=== PATIENT | female | born 1960 | race American Indian/Alaskan Native ===

== ENCOUNTER 2018-11-14 11:22 | Emergency (ER) | payer MEDICAID ==
--- NOTE | 2018-11-14 11:45 | Cat Scan Report ---
PROCEDURE: CT HEAD/BRAIN WO CON TECHNIQUE: A noncontrast CT of the head was performed. HISTORY: neuro deficits <6hrs or sx present upon awakening COMPARISON: None FINDINGS: There is a 1.6 cm calcified meningioma in the left posterior parietal parafalcine region. There is no significant edema or mass effect seen. There is no acute intracranial hemorrhage. There is no brain edema, mass effect or midline shift. Ventricular size is appropriate for brain volume. There is no abnormal extra-axial fluid collections. There is no skull fracture seen. The visualized paranasal sinuses are clear. 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 IMPRESSION: 1.6 cm calcified meningioma in left posterior parietal parafalcine region. No significan t mass effect or edema. There is no acute intracranial abnormality otherwise identified. This document is electronically signed by Ivelisse Castorena MD., November 14 2018 11:43:49 AM ET
--- NOTE | 2018-11-14 11:46 | Consultation ---
History of Present Illness History of present illness: [facility] Consult Services Impression: Patient with seizure disorder found down at home. EMS witnessed seizure on arrival. She has right-sided weakness and dysarthria, which could be Paco's phenomenon, but rule out left hemispheric lacunar infarct. No cortical/large vessel signs/symptoms. Not a tpa candidate due to: out of window Not an LYNETTE candidate due to: presentation not suggestive of LVO Differential Diagnosis: 1. Cardioembolic stroke 2. Small vessel disease/lacune 3. Thromboembolic, [id number] mechanism 4. Hypercoagulable state-related infarct 5. Transient ischemic attack 6. Thrombotic mechanism, large artery disease Comments: Door time: 1122 [facility] contacted: [id number] [facility] at bedside: 1131 NIHSS assessment time: 1135 Recommendations: Keppra 1500mg load Confirm her home antiseizure med regimen MRI brain wo Seizure precautions inpatient neurology consultation Inpatient stroke evaluation as per Neurology/ Internal Medicine Discussed with ED MD CC: stroke alert History of Present Illness Patient is a58 year old woman with a reported history of seizure disorder (specifics unknown). Last see normal by family at 0200. Family found her at home down around 1100 today. She was minimally responsive and had indication of right-sided weakness and slurred speech. EMS summoned and on arrival they witnessed a brief convulsion. Diagnostic: CT head wo - nothing acute Exam: NIHSS score: 8 Medical Decision Making: - Extensive number of diagnosis or management options are considered above. - Extensive amount of complex data reviewed. - High risk of complication and/or morbidity or mortality are associated with differential diagnostic considerations above. - There may be Uncertain outcome and increased probability of prolonged functional impairment or high probability of severe prolonged functional impairment associated with some of these differential diagnosis. Medical Data Reviewed: 1.Data reviewed include clinical labs, radiology, Medical Tests; 2.Tests results discussed w/performing or interpreting physician; 3.Obtaining/reviewing old medical records; 4.Obtaining case history from another source; 5.Independent review of image, tracing or specimen. Patient was informed the Neurology Consult would happen via TeleHealth consult by way of interactive audio and video telecommunications and consented to receiving care in this manner. Medications and Allergies Allergies Allergy/AdvReac Type Severity Reaction Status Date / Time No Known Allergies Allergy Unverified 11/14/18 11:26 - Level of Consciousness 1a. Level of Consciousness: alert/keenly responsive - LOC Questions 1b. LOC Questions: answers no questions correctly - LOC Command 1c. LOC Commands: performs tasks correctly - Best Gaze 2. Best Gaze: partial gaze palsy - Visual 3. Visual: no visual loss - Facial Palsy 4. Facial Palsy: partial paralysis - Motor Arm 5a. Motor Arm Left: no drift 5b. Motor Arm Right: drift - Motor Leg 6a. Motor Leg Left: no drift 6b. Motor Leg Right: drift - Limb Ataxia 7. Limb Ataxia: absent - Sensory 8. Sensory: normal - Best Language 9. Best Language: no aphasia - Dysarthria 10. Dysarthria: mild/moderate dysarthria - Extinction and Inattention 11. Extinction/Inattention: no abnormality - Scoring Total Score: 8 Stroke Severity: Moderate Stroke Results - Laboratory Findings Abnormal Lab Findings: Abnormal Labs 11/14/18 11:45 POC Glucose 135 H
[2018-11-14 11:48] LABS: Basophils # (Auto) 0.1 K/mm3 (0.0-0.1); Basophils % (Auto) 0.8 % (0.0-1.8); Eosinophils # (Auto) 0.2 K/mm3 (0.0-0.4); Eosinophils % (Auto) 2.4 % (0.0-4.3); Hematocrit 36.2 % (30.3-42.9); Hemoglobin 12.5 gm/dl (10.1-14.3); Lymphocytes % (Auto) 30.8 % (13.4-35.0); Mean Corpuscular HGB Conc 35 % (30-34); Mean Corpuscular Volume 95 fl (79-97); Monocytes # (Auto) 0.7 K/mm3 (0.0-0.8); Monocytes % (Auto) 11.3 % (0.0-7.3); Platelet Count 235 K/mm3 (140-440); Red Blood Count 3.79 M/mm3 (3.65-5.03); Red Cell Distribution Width 14.3 % (13.2-15.2)
[2018-11-14] MEDS ORDERED: KEPPRA 1,000 MG/NS 0.75% 100ML 1,000 MG/100 ML BAG IV ONE (11:55)
[2018-11-14 12:02] LABS: BUN/Creatinine Ratio 12; Blood Urea Nitrogen 7 mg/dL (7-17); Calcium 8.8 mg/dL (8.4-10.2); Hemolysis Index 5
[2018-11-14 12:04] LABS: INR 0.91 (0.87-1.13)
[2018-11-14 12:05] LABS: Partial Thromboplastin Time 26.4 Sec. (24.2-36.6); Thrombin Time 15.3 Sec. (15.1-19.6)
[2018-11-14 12:07] VITALS: BP 127/71
--- NOTE | 2018-11-14 12:42 | Emergency Department Report ---
ED General Adult HPI - General Chief complaint: Neuro Symptoms/Deficit Stated complaint: LEEANNA Time Seen by Provider: 11/14/18 11:36 Source: EMS Mode of arrival: Stretcher Limitations: No Limitations - History of Present Illness Initial comments: (The patient presents to the emergency department via EMS after being found down at home. The patient has a history of seizures and she had one witnessed by EMS in route to the hospital. Patient has residual right-sided deficits from her prior stroke. -: Sudden Consistency: constant Improves with: none Worsens with: none Associated Symptoms: denies other symptoms Treatments Prior to Arrival: none - Related Data Previous Rx's Medication Instructions Recorded Last Taken Type levETIRAcetam [Keppra TAB] 500 mg PO BID #60 tablet 11/14/18 Unknown Rx Allergies Allergy/AdvReac Type Severity Reaction Status Date / Time No Known Allergies Allergy Unverified 11/14/18 11:26 ED Review of Systems ROS: Stated complaint: LEEANNA Other details as noted in HPI Comment: All other systems reviewed and negative Constitutional: denies: chills, fever Eyes: denies: eye pain, eye discharge, vision change ENT: denies: ear pain, throat pain Respiratory: denies: cough, shortness of breath, wheezing Cardiovascular: denies: chest pain, palpitations Endocrine: no symptoms reported Gastrointestinal: denies: abdominal pain, nausea, diarrhea Genitourinary: denies: urgency, dysuria, discharge Musculoskeletal: denies: back pain, joint swelling, arthralgia Skin: denies: rash, lesions Neurological: denies: headache, weakness, paresthesias Psychiatric: denies: anxiety, depression Hematological/Lymphatic: denies: easy bleeding, easy bruising ED Past Medical Hx - Past Medical History Previous Medical History?: Yes Hx Diabetes: Yes Hx Headaches / Migraines: Yes Hx Seizures: Yes - Surgical History Past Surgical History?: Yes Additional Surgical History: Right eye replacement - Social History Smoking Status: Never Smoker - Medications Home Medications: Home Medications Medication Instructions Recorded Confirmed Last Taken Type levETIRAcetam [Keppra TAB] 500 mg PO BID #60 tablet 11/14/18 Unknown Rx ED Physical Exam - General Limitations: No Limitations General appearance: alert, in no apparent distress - Head Head exam: Present: atraumatic, normocephalic - Eye Eye exam: Present: normal appearance - ENT ENT exam: Present: mucous membranes moist - Neck Neck exam: Present: normal inspection - Respiratory Respiratory exam: Present: normal lung sounds bilaterally. Absent: respiratory distress - Cardiovascular Cardiovascular Exam: Present: regular rate, normal rhythm. Absent: systolic murmur, diastolic murmur, rubs, gallop - GI/Abdominal GI/Abdominal exam: Present: soft, normal bowel sounds. Absent: distended, tenderness - Extremities Exam Extremities exam: Present: normal inspection - Back Exam Back exam: Present: normal inspection - Neurological Exam Neurological exam: Present: alert, oriented X3, CN II-XII intact. Absent: motor sensory deficit, other (the patient has 4 out of 5 strength of the right upper and lower extremities) - Psychiatric Psychiatric exam: Present: normal affect, normal mood - Skin Skin exam: Present: warm, dry, intact, normal color. Absent: rash ED Course Vital Signs 11/14/18 11/14/18 11/14/18 11:30 11:44 11:45 Temperature 98.0 F Pulse Rate 98 H Respiratory 20 16 Rate Blood Pressure O2 Sat by Pulse 97 Oximetry 11/14/18 12:00 Temperature Pulse Rate 84 Respiratory 10 L Rate Blood Pressure 127/71 O2 Sat by Pulse 96 Oximetry ED Medical Decision Making - Lab Data Result diagrams: 11/14/18 11:40 11/14/18 11:40 Lab Results 11/14/18 11/14/18 11/14/18 Range/Units 11:40 11:40 11:40 WBC 6.4 (4.5-11.0) K/mm3 RBC 3.79 (3.65-5.03) M/mm3 Hgb 12.5 (10.1-14.3) gm/dl Hct 36.2 (30.3-42.9) % MCV 95 (79-97) fl MCH 33 H (28-32) pg MCHC 35 H (30-34) % RDW 14.3 (13.2-15.2) % Plt Count 235 (140-440) K/mm3 Lymph % (Auto) 30.8 (13.4-35.0) % [place] % (Auto) 11.3 H (0.0-7.3) % Eos % (Auto) 2.4 (0.0-4.3) % Baso % (Auto) 0.8 (0.0-1.8) % Lymph # 2.0 (1.2-5.4) K/mm3 [place] # 0.7 (0.0-0.8) K/mm3 Eos # 0.2 (0.0-0.4) K/mm3 Baso # 0.1 (0.0-0.1) K/mm3 Seg Neutrophils % 54.7 (40.0-70.0) % Seg Neutrophils # 3.5 (1.8-7.7) K/mm3 PT 12.8 (12.2-14.9) Sec. INR 0.91 (0.87-1.13) APTT 26.4 (24.2-36.6) Sec. Thrombin Time 15.3 (15.1-19.6) Sec. Sodium 141 (137-145) mmol/L Potassium 3.8 (3.6-5.0) mmol/L Chloride 104.6 (98-107) mmol/L Carbon Dioxide 25 (22-30) mmol/L Anion Gap 15 mmol/L BUN 7 (7-17) mg/dL Creatinine 0.6 L (0.7-1.2) mg/dL Estimated GFR > 60 ml/min BUN/Creatinine Ratio 12 % Glucose 137 H (65-100) mg/dL POC Glucose (70-105) Calcium 8.8 (8.4-10.2) mg/dL 11/14/18 Range/Units 11:45 WBC (4.5-11.0) K/mm3 RBC (3.65-5.03) M/mm3 Hgb (10.1-14.3) gm/dl Hct (30.3-42.9) % MCV (79-97) fl MCH (28-32) pg MCHC (30-34) % RDW (13.2-15.2) % Plt Count (140-440) K/mm3 Lymph % (Auto) (13.4-35.0) % [place] % (Auto) (0.0-7.3) % Eos % (Auto) (0.0-4.3) % Baso % (Auto) (0.0-1.8) % Lymph # (1.2-5.4) K/mm3 [place] # (0.0-0.8) K/mm3 Eos # (0.0-0.4) K/mm3 Baso # (0.0-0.1) K/mm3 Seg Neutrophils % (40.0-70.0) % Seg Neutrophils # (1.8-7.7) K/mm3 PT (12.2-14.9) Sec. INR (0.87-1.13) APTT (24.2-36.6) Sec. Thrombin Time (15.1-19.6) Sec. Sodium (137-145) mmol/L Potassium (3.6-5.0) mmol/L Chloride (98-107) mmol/L Carbon Dioxide (22-30) mmol/L Anion Gap mmol/L BUN (7-17) mg/dL Creatinine (0.7-1.2) mg/dL Estimated GFR ml/min BUN/Creatinine Ratio % Glucose (65-100) mg/dL POC Glucose 135 H (70-105) Calcium (8.4-10.2) mg/dL - EKG Data -: EKG Interpreted by Me EKG shows normal: sinus rhythm Rate: normal - Radiology Data Radiology results: report reviewed - Medical Decision Making The patien the patient states that she has not taken her seizure Patient given IV Keppra Discussed CT findings with patient of a meningioma which she states she will follow-up with her primary care physician Critical care attestation.: If time is entered above; I have spent that time in minutes in the direct care of this critically ill patient, excluding procedure time. ED Disposition Clinical Impression: Seizure Disposition: DC-01 TO HOME OR SELFCARE Is pt being admited?: No Does the pt Need Aspirin: No Condition: Stable Instructions: Recurrent Seizures Adult (ED) Additional Instructions: return if worse Prescriptions: levETIRAcetam [Keppra TAB] 500 mg PO BID #60 tablet Referrals: [facility], [Provider Group] - 3-5 Days [facility] [Provider Group] - 3-5 Days Time of Disposition: 12:46 - Assessment Assessment Interval: Baseline - Level of Consciousness 1a. Level of Consciousness: alert/keenly responsive - LOC Questions 1b. LOC Questions: answers both correctly - LOC Command 1c. LOC Commands: performs tasks correctly - Best Gaze 2. Best Gaze: partial gaze palsy - Visual 3. Visual: no visual loss - Facial Palsy 4. Facial Palsy: partial paralysis - Motor Arm 5a. Motor Arm Left: no drift 5b. Motor Arm Right: drift - Motor Leg 6a. Motor Leg Left: no drift 6b. Motor Leg Right: drift - Limb Ataxia 7. Limb Ataxia: absent - Sensory 8. Sensory: normal - Best Language 9. Best Language: no aphasia - Dysarthria 10. Dysarthria: mild/moderate dysarthria - Extinction and Inattention 11. Extinction/Inattention: no abnormality - Scoring Total Score: 6 Stroke Severity: Moderate Stroke
== END 2018-11-14 13:10 | disposition home or self-care (01) ==
LOC: ED 11:22
DX: G40.909 Epilepsy, unspecified, not intractable, without status epilepticus (principal); E11.9 Type 2 diabetes mellitus without complications; G43.909 Migraine, unspecified, not intractable, without status migrainosus
CPT/HCPCS: 36415; 70450; 80048; 82962; 84484; 85025; 85610; 85670; 85730; 93005; 93010; 96374; 99285; J1953

== ENCOUNTER 2020-12-30 16:53 | Emergency (ER) | payer MEDICAID ==
[2020-12-30 16:59] VITALS: BP 143/95
--- NOTE | 2020-12-30 17:33 | XRay Report ---
CHEST 2 VIEWS INDICATION / CLINICAL INFORMATION: CHEST PAIN COUGH SOB. COMPARISON: None available. FINDINGS: SUPPORT DEVICES: None. HEART / MEDIASTINUM: No significant abnormality. LUNGS / PLEURA: No significant pulmonary or pleural abnormality. No pneumothorax. ADDITIONAL FINDINGS: No significant additional findings. IMPRESSION: 1. No acute findings. Signer Name: Luke Singh DO Signed: 12/30/2020 5:29 PM Workstation Name: [id number]
[2020-12-30 18:14] LABS: Basophils % (Auto) 0.8 % (0.0-1.8); Eosinophils % (Auto) 0.5 % (0.0-4.3); Hematocrit 34.5 % (30.3-42.9); Lymphocytes # (Auto) 1.2 K/mm3 (1.2-5.4); Lymphocytes % (Auto) 20.8 % (13.4-35.0); Mean Corpuscular HGB Conc 35 % (30-34); Mean Corpuscular Volume 96 fl (79-97); Monocytes # (Auto) 0.8 K/mm3 (0.0-0.8); Platelet Count 231 K/mm3 (140-440); Red Blood Count 3.58 M/mm3 (3.65-5.03); Red Cell Distribution Width 13.5 % (13.2-15.2)
[2020-12-30 18:33] LABS: Alanine Aminotransferase 19 units/L (7-56); Albumin 4.1 g/dL (3.9-5); Blood Urea Nitrogen 6 mg/dL (7-17); Calcium 8.9 mg/dL (8.4-10.2); Hemolysis Index 2
[2020-12-30 18:56] LABS: BUN/Creatinine Ratio 9
--- NOTE | 2021-01-01 17:40 | Electrocardiograph Report ---
[facility] Test Date: 2020-12-30 Test Time: 17:17:13 Pat Name: BRAD ALDRICH Department: Room: Gender: F Settlement Technician: YOANDY : 1960 Requested By: ELAINA FARIAS Order Number: [id number] Reading MD: Arya Christian Measurements Intervals [place] Rate: 87 P: 75 KS: 181 QRS: 70 QRSD: 98 T: 44 QT: 382 QTc: 461 Interpretive Statements Sinus rhythm No previous ECG available for comparison Electronically Signed On 01-01-2021 17:39:59 EDT by Arya Christian
== END 2020-12-30 20:45 | disposition left against medical advice (07) ==
LOC: ED 16:53
DX: T59.91XA Toxic effect of unspecified gases, fumes and vapors, accidental (unintentional), initial encounter (principal); Z53.21 Procedure and treatment not carried out due to patient leaving prior to being seen by health care provider
CPT/HCPCS: 36415; 71046; 80053; 84484; 85025; 93005

== ENCOUNTER 2021-01-29 07:21 | Day surgery (SDC) | payer MEDICAID ==
[~2021-01-29 07:21] MED LIST: SODIUM CHLORIDE 0.9% 1000 ML 1,000 ML IV SCH
[2021-01-29] MEDS ORDERED: WATER FOR IRRIG STERILE 250 ML BOTTLE IR ONE (07:35)
[2021-01-29] MEDS ORDERED: WATER FOR IRRIG STERILE 1,000 ML BOTTLE ONE (07:35)
--- NOTE | 2021-01-29 08:00 | Anesthesia Consultation ---
Anesthesia Consult and Med Hx Date of service: 01/29/21 - Airway Anesthetic Teeth Evaluation: Dentures (Upper and lower full plates) ROM Head & Neck: Adequate Mental/Hyoid Distance: Adequate Mallampati Class: Class I Intubation Access Assessment: Good - Pulmonary Exam CTA: Yes - Pre-Operative Health Status ASA Pre-Surgery Classification: ASA3 Proposed Anesthetic Plan: MAC - Pulmonary Hx Smoking: Yes (One pack per day for 35 years.) Hx Asthma: No Hx Respiratory Symptoms: No COPD: No Home Oxygen Therapy: No Hx Sleep Apnea: No - Cardiovascular System Hx Hypertension: Yes Hx Heart Attack/AMI: No - Central Nervous System Hx Seizures: Yes (Multiple eisodes under anesthesia) CVA: No - Gastrointestinal Hx Ulcer: Yes (Remote Hx) - Endocrine Hx Renal Disease: No Hx Cirrhosis: No Hx Insulin Dependent Diabetes: No Hx Non-Insulin Dependent Diabetes: No Hx Thyroid Disease: No - Other Systems Hx Alcohol Use: Yes (Occasionally) Hx Obesity: No
--- NOTE | 2021-01-29 08:30 | Anesthesia Day of Surgery ---
Anesthesia Day of Surgery - Day of Surgery Patient Examined: Yes Patient H&P Reviewed: Yes Patient is NPO: Yes Beta Blockers: No Cardiac Clearance: No Pulmonary Clearance: No
[2021-01-29] MEDS ORDERED: MIDAZOLAM 2 MG/2 ML INJ ONE (08:33)
[2021-01-29] MEDS ORDERED: propofoL 200 MG/20 ML VIAL IV ONE ×3 (08:34→09:11)
[2021-01-29] MEDS ORDERED: fentaNYL 100 MCG/2 ML INJ ONE (08:34)
[2021-01-29] MEDS ORDERED: LIDOCAINE MPF (2%) 20 MG/1 ML VIAL 5 ML ONE (08:45)
[2021-01-29] MEDS ORDERED: LIDOCAINE JELLY (2%) 5 ML TOPICAL ONE (08:45)
[2021-01-29] MEDS ORDERED: LIDOCAINE 2% UROJECT 10 ML JELLY TP ONE (09:14)
--- NOTE | 2021-01-29 09:27 | Procedure Note ---
Date of procedure: 01/29/21 Pre-op diagnosis: Hematochezia and Colon Polyp Screening Post-op diagnosis: other (Colon Popys (3-two in the Cecum and one in the Rectum)/ Mild to Moderate Diverticular disease (left Colon)/ Moderate InternaHemorrrhoids cause of Hematochezia-Banding x4)) Procedure: Colonoscopy with Cold biopsy Hot Snare used for Fulguaration/ Flexible Sigmoidoscopy with bith banding (x 4) Anesthesia: MAC Surgeon: MITCHELL SILVESTRE Estimated blood loss: minimal Pathology: list Specimen disposition: to lab Condition: stable Disposition: same day (Avoid aspirn and NSAID and anticoagulants for 4 days; othewise resume previous medication. Treat with Tramadol, encourage fiber intake and encurage use of Sitz bath and follow up in 1 to 2 weeks ([phone]).)
--- NOTE | 2021-01-29 09:49 | Operative Report ---
DATE OF SURGERY: 01/29/2021 FLEXIBLE SIGMOIDOSCOPY WITH BANDING X4 INDICATIONS: This is a 60-year-old -[place] female who has been complaining of hematochezia. She has had banding done in the past, colonoscopy at this time showed moderate internal hemorrhoids in addition to 3 polyps that were removed and mild to moderate internal hemorrhoid. DESCRIPTION OF PROCEDURE: For the flexible sigmoidoscopy, the EGD scope with the banding apparatus was introduced and 4 of the largest hemorrhoids were then suctioned into the suction channel and band was deployed for banding. At the end of the procedure, lidocaine gel was injected into the rectal vault. ASSESSMENT: Hematochezia secondary to moderate internal hemorrhoids, status post banding x4. PLAN: To have the patient avoid aspirin and aspirin-related products for the next few days. I will have the patient take some Sitz bath. The patient will be given some tramadol if needed and asked to follow up in the office in 1-2 weeks' time. Procedure was done in the GI lab with the assistance of the GI lab, which includes the facility maintenance technician with assistance of anesthesia. TID: [id number] RECEIPT: [id number] MIGUEL
[2021-01-29] MEDS ORDERED: fentaNYL 100 MCG/2 ML INJ IV SCH (10:30)
--- NOTE | 2021-01-29 11:06 | Operative Report ---
DATE OF SURGERY: 01/29/2021 PROCEDURE: Colonoscopy. INDICATIONS: A 60-year-old -[place] female, who has been complaining of hematochezia. Colonoscopy was done as part of colon polyp screening and also to assess for the cause of the hematochezia and do banding if required. The patient states that she has had hemorrhoidal banding done in the past. DESCRIPTION OF PROCEDURE: Procedure was done after getting informed consent with MAC anesthesia. Initial rectal examination was unremarkable. The instrument was passed through the rectum onto the cecum, which was identified by the ileocecal valve and appendiceal orifice. Visualization was fair. There were 2 polyps noted in the cecum. The patient had very heavy bleeding. It was difficult to snare them. Both of them were fulgurated. One was caught with the biopsy forceps and a piece of it was removed. There was minimal bleeding with that procedure. There was mild to moderate diverticula noted in the left colon. The remaining part of the proximal colon and the transverse colon showed normal mucosa and the rectum showed moderate internal hemorrhoid, which was the possible cause of the patient's bleeding. In addition, there was a rectal polyp that was also removed by cold biopsy. ASSESSMENT: Hematochezia secondary to moderate internal hemorrhoids, colon polyps, 1 rectal, 2 cecal. Rectal polyp was removed by cold biopsy. The cecal polyps were burned using the tip of the polypectomy snare, 1 was removed by cold biopsy, the other is to slough off. Mild to moderate internal hemorrhoid. PLAN: To have the patient avoid aspirin and aspirin-related products and anticoagulants for the next 5 days. Encouraged the patient to take fiber supplements. A flexible sigmoidoscopy with banding will be done for treatment of the moderate internal hemorrhoids, which is the cause of the patient's hematochezia. The patient will be asked to follow up in the office in 1-2 weeks' time. Procedure was done in the GI lab with assistance of the GI lab team, which included the GI nurse, isotope technician and with assistance of Anesthesia. TID: [id number] RECEIPT: [id number] NIXON/MEGAN/TOMASZ
--- NOTE | 2021-01-29 12:19 | Post Anesthesia Evaluation ---
- Post Anesthesia Evaluation Patient Participated: Yes Airway Patent: Yes Stable Respiratory Function: Yes Nausea/Vomiting: No Temp > 96.8F: Yes Pain Manageable: Yes Adequeate Hydration: Yes Anesthesia Complications: No Block Receding Appropriately: Not Applicable Patient on Ventilator: No
[2021-01-29 13:04] VITALS: BP 132/69
== END 2021-01-29 10:55 | disposition home or self-care (01) ==
LOC: GIO 07:21
DX: K92.1 Melena (principal); I10 Essential (primary) hypertension; F17.210 Nicotine dependence, cigarettes, uncomplicated; Z79.899 Other long term (current) drug therapy; Z98.890 Other specified postprocedural states
CPT/HCPCS: 45380; 45385; 88305; J2250; J2704; J3010; J7030